=== PATIENT | female | born 1990 | race Caucasian/White ===

== ENCOUNTER 2021-09-11 13:34 | Outpatient (CLI) | payer OTHER, SELFPAY ==
[2021-09-11 20:28] LABS: Alanine Aminotransferase 33 U/L (4-35); Albumin Level 4.6 g/dL (3.5-5.1); Alkaline Phosphatase 79 U/L (38-126); Aspartate Amino Transferase 35 U/L (14-36); Bilirubin,Total 0.4 mg/dL (0.2-1.3)
== END 2021-09-11 13:35 | disposition home or self-care (01) ==
LOC: ANHBWCLAB 13:36
PROVIDERS: PCP Family Medicine; Visit Provider Family Medicine
DX: R74.8 Abnormal levels of other serum enzymes (principal)
CPT/HCPCS: 36415; 80076

== ENCOUNTER 2021-11-07 15:54 | Outpatient (CLI) | payer OTHER, SELFPAY ==
[2021-11-07 20:00] LABS: Hematocrit 38.1 % (37.0-47.0); Hemoglobin 12.5 g/dL (12.0-15.0); Mean Corpuscular HGB Conc 32.8 g/dl (32-36); Mean Corpuscular Hemoglobin 29.6 pg (26-34); Mean Corpuscular Volume 90.1 fl (80-100); Mean Platelet Volume 9.3 fl (7.4-10.4); Platelet Count Result 309 k/mm3 (150-375); Red Blood Count 4.23 M/mm3 (4.2-5.4); Red Cell Distribution Width 12.7 % (11.5-14.5); White Blood Count 5.1 K/mm3 (4.5-10.0)
[2021-11-07 20:05] LABS: Alanine Aminotransferase 18 U/L (4-35); Albumin Level 4.5 g/dL (3.5-5.1); Alkaline Phosphatase 60 U/L (38-126); Anion Gap 7 mmol/L (8-16); Aspartate Amino Transferase 29 U/L (14-36); Bilirubin,Total 0.2 mg/dL (0.2-1.3); Blood Urea Nitrogen 13 mg/dL (7-17); Calcium 9.4 mg/dL (8.4-10.2); Carbon Dioxide 28 mmol/L (22-30); Chloride 104 mmol/L (98-107); Cholesterol 200 mg/dL (0-200); Estimated Glomerular Filt Rate > 60; Glucose 95 mg/dL (65-110); HDL Direct 79 mg/dL; Potassium 4.2 mmol/L (3.4-5.0); Sodium 139 mmol/L (137-145); Triglycerides 102 mg/dL (<150)
[2021-11-07 20:16] LABS: LDL Cholesterol Direct 89 mg/dL
[2021-11-10 05:31] LABS: Progesterone 0.5 ng/mL (***)
[2021-11-10 14:43] LABS: Testosterone Total 38 ng/dL (2-45)
[2021-11-15 03:25] LABS: Estrogen 643.9 pg/mL
== END 2021-11-07 15:55 | disposition home or self-care (01) ==
LOC: ANHBWCLAB 15:56
PROVIDERS: PCP Family Medicine; Visit Provider Family Medicine
DX: Z00.00 Encounter for general adult medical examination without abnormal findings (principal); E78.00 Pure hypercholesterolemia, unspecified; R53.82 Chronic fatigue, unspecified; M79.7 Fibromyalgia; E07.9 Disorder of thyroid, unspecified; E66.9 Obesity, unspecified; E28.2 Polycystic ovarian syndrome; R79.89 Other specified abnormal findings of blood chemistry; R00.2 Palpitations; F41.9 Anxiety disorder, unspecified; R74.8 Abnormal levels of other serum enzymes
CPT/HCPCS: 36415; 80053; 80061; 82672; 84144; 84403; 84443; 85027

== ENCOUNTER 2021-11-30 08:57 | Outpatient (CLI) | payer OTHER, SELFPAY ==
--- NOTE | ~2021-11-30 | XR_ITS ---
EXAMINATION: XR abdomen obstructive series DATE: 11/30/2021 09:07 INDICATION: Left-sided abdominal pain TECHNIQUE: Upright and supine views of the abdomen were obtained. COMPARISON: None. FINDINGS: There is no free intraperitoneal gas or evidence of bowel obstruction. The bowel gas patter n is normal. There is a moderate volume of colonic stool. The visualized osseous structures are unrem arkable. IMPRESSION: 1. Nonobstructive bowel gas pattern Reviewed, dictated and finalized at location B.
== END 2021-11-30 08:58 | disposition home or self-care (01) ==
LOC: ANHBWCIMG 08:59
PROVIDERS: PCP Family Medicine; Visit Provider Family Medicine
DX: R10.9 Unspecified abdominal pain (principal)
CPT/HCPCS: 74019

== ENCOUNTER 2021-12-04 12:23 | Outpatient (CLI) | payer OTHER, SELFPAY ==
[2021-12-04 20:21] LABS: Basophils Percent Auto 0.9 % (0.2-1.2); Eosinophils Absolute Auto 0.2 K/mm3 (0-0.3); Eosinophils Percent Auto 4.2 % (0-4.4); Hematocrit 43.4 % (37.0-47.0); Hemoglobin 13.7 g/dL (12.0-15.0); Immature Granulocyte Absolute 0.01 K/mm3 (0.00-0.031); Immature Granulocyte Percent A 0.2 % (0-0.5); Lymphocytes Absolute Auto 1.74 K/mm3 (0.9-3.2); Lymphocytes Percent Auto 38.5 % (18.3-44.2); Mean Corpuscular HGB Conc 31.6 g/dl (32-36); Mean Corpuscular Hemoglobin 29.1 pg (26-34); Mean Corpuscular Volume 92.3 fl (80-100); Mean Platelet Volume 9.3 fl (7.4-10.4); Monocytes Absolute Auto 0.5 K/mm3 (0.1-0.6); Monocytes Percent Auto 11.1 % (2.6-8.5); Neutrophils Percent Auto 45.1 % (45.5-73.1); Platelet Count Result 364 k/mm3 (150-375); White Blood Count 4.5 K/mm3 (4.5-10.0)
[2021-12-04 21:04] LABS: Erythrocyte Sedimentation Rate 5 mm/hr (0-20)
[2021-12-04 21:28] LABS: CRP < 0.5 mg/dL (<1.0); Lipase 248 U/L (23-300)
== END 2021-12-04 12:24 | disposition home or self-care (01) ==
LOC: ANHBWCLAB 12:25
PROVIDERS: PCP Family Medicine; Visit Provider Family Medicine
DX: R10.9 Unspecified abdominal pain (principal); R74.8 Abnormal levels of other serum enzymes
CPT/HCPCS: 36415; 83690; 85025; 85652; 86140

== ENCOUNTER 2024-01-23 13:44 | Outpatient (RCR) | payer OTHER, SELFPAY ==
--- NOTE | 2024-01-23 14:48 | OPREHPOC ---
Outpatient Therapy Plan of Care This is a Multidisciplinary Plan of Care that may contain components documented by all disciplines (PT, OT, and ST.) PT Problem 1 PT Problem #1 Knowledge Deficit PT Goal 1 Goal *indep with HEP Target Visit 8 PT Problem 2 PT Problem #2 Impaired Vestibular Syste PT Goal 1 Goal pt perform without any symptoms reported: 1* lean trunk forward 2* walking 50' and turning head to R/L 3x each 3* driving 4* supine/sit/stand transfer 5* further assess vestibular system as indicated with progression of treatment Target Visit 8
--- NOTE | 2024-01-23 14:49 | PTOPEVAL1 ---
Assessment and note entered by Michelle Bustillos, PT Evaluation Information Assessment Status Evaluation Diagnosis dizziness Onset Oct 2023 Subjective Information history of chronic issues with migraines; in past 3 months started having dizziness with migraines; history of dizziness after her 2 pregnancies, daughter now 8 months old; sometimes have dizziness and not have a migraine: bend forward, moving head a lot with home tasks, walking and turning head, driving; have dizziness throughout the day, lasting few seconds to few minutes--not long; have recently had 3 sinus infections; use Flonase & Zyrtc PRN; have not started any new meds recently; meclazine does not effect dizziness so have not been taking it; hearing test was OK; have been to ENT and have had MRI- normal symptoms: lie in bed and room spinning- random occurance; turn head and get dizzy; Reported Pain Level Pain Score 0: Self Report Assessment PT Clinical Summary Rosa has the diagnosis of dizziness. She reports an increase in dizziness in the past 3 months, occur throughout the day, lasting few seconds to few minutes. Dizziness Handicap Index rating of 28% limitation. Her medical history includes: sinus infections 3x recently; nasal surgery x2 for nose bleeding; migraines; dizziness after her 2 pregnancies. With the evaluation: she had slight increase in symptoms with head motions R/L and positional changes; eye tracking and canal testing was negative. Education provided to pt--her risk factors, safety and possibly taking sinus meds regularly instead of PRN. Skilled PT services are indicated for further assessment of her vestibular system and education. Plan of Care Interventions Neuro Re-education,Patient/Caregiver Educati, Therapeutic Activities,Therapeutic Exercise PT Services Indicated Yes Treatment Frequency and 1-2x/wk for 8 visit total Duration
--- NOTE | 2024-02-18 11:48 | PTOPDC ---
Assessment and note entered by Michelle Bustillos, PT Discharge Report Assessment Status Discharge - Pt Not Present Diagnosis dizziness Onset Oct 2023 Subjective Information pt was not seen this date; Assessment PT Clinical Summary Rosa received the PT evaluation on January 22 and did not return for additional treatment. Discharge PT services. The goals were not addressed. Plan of Care PT Services Indicated No
== END 2024-02-18 13:33 | disposition home or self-care (01) ==
LOC: ANHPT 13:44
PROVIDERS: PCP Family Medicine; Visit Provider Family Medicine
DX: R42 Dizziness and giddiness (principal)
CPT/HCPCS: 97161; 97530

== ENCOUNTER 2024-04-16 09:02 | Outpatient (CLI) | payer OTHER, SELFPAY ==
[2024-05-04 18:12] VITALS: BMI 41.6
--- NOTE | 2024-05-04 18:12 | WPDHOMESLEEP ---
Sleep Study - Home Unattended Date of Study: 04/16/24 Ordering Provider: Mukul Hector MD Interpreting Provider: Akosua Skaggs DO Home Sleep Study Type: Watch PAT Height: 1.6 m Weight: 106.594 kg Body Mass Index: 41.6 Neck Circumference (inches): 15 [place]: 9 Reason for Sleep Study Snoring, daytime hypersomnia Sleep History The patient is a 34-year-old female that had a sleep study ordered by her primary care physician for evaluation of sleep apnea. The patient admits to snoring loudly, excessive daytime sleepiness and difficulty maintaining sleep. She denies stopping breathing during the night. She denies nocturnal choking / gasping. She denies having trouble breathing on her back. She admits to having morning headaches. She denies having a dry for sore mouth in the morning. She denies nocturnal heartburn. She denies nocturia. She admits to feeling tired or fatigued during the day. She admits to unrefreshing sleep. She does have the urge to fall asleep during the day and she is often drowsy while driving. She denies having trouble falling asleep. She admits to having difficulty returning to sleep. She wakes up too early without an alarm. She denies using hypnotics or sedatives. She denies being anxious about sleep. She does clench and grinds her teeth. She denies kicking and jerking her legs excessively during the night. She denies having a restless feeling in her legs or having the urge to move her legs. She goes to bed at 9:30 p.m. on weekdays and at 10:00 p.m. on the weekends. It takes her 1 hour to fall asleep. She typically gets 6 hours of sleep per night. She does not have restorative sleep on her days off. She does not take any planned naps. She denies smoking cigarettes. She consumes 1 glass of and alcoholic beverage 1-2 nights per week. She consumes 1-2 cups of caffeinated beverage per day. She denies exercising. [facility] Past Medical History Medical History Eczema Low vitamin D level Thyroid disease Family History Family History Father Borderline diabetes Grandparent Breast cancer Diabetes mellitus Social History Social History Smoking status: Never smoker Alcohol intake: current Drinks per week: 5 Substance use: never Lack of Transportation: No Lack of Food: Never True Current Housing: I Do Not Have Housing Concerned About Future Housing: No Difficulty Paying Gas/Electric Bills: No Difficulty Paying for Meds: No Currently Unemployed: No Education: Bachelor's Degree Difficulty w/ Childcare or Family Care: No Living arrangements: with family Medications Home Medications Medication Instructions Recorded Confirmed Type docosahexaenoic acid [ DHA] PO 03/04/20 02/12/22 History comp.stocking,knee,long,medium #12 ea 05/13/20 02/12/22 Rx cholecalciferol (vitamin D3) 50 50 mcg PO DAILY 09/07/21 02/12/22 History mcg (2,000 unit) capsule polyethylene glycol 3350 17 17 g PO DAILY #119 grams 12/01/21 02/12/22 Rx gram/dose oral powder (Miralax) methylphenidate HCl 5 mg tablet 5 mg PO DAILY 02/12/22 02/12/22 History sumatriptan succinate 25 mg tablet 25 mg PO ONCE 02/12/22 02/12/22 History vitamin B complex (B 1 tablet PO DAILY 02/12/22 02/12/22 History Complex-Vitamin B12 tablet) azithromycin 250 mg tablet See Rx Instructions PO .COMPLEX #6 01/23/24 01/23/24 Rx (Zithromax Z-Eliot) tabs prednisone 20 mg tablet 40 mg PO DAILY #10 tabs 01/23/24 01/23/24 Rx topiramate 25 mg tablet 25 mg PO DAILY #30 tabs 01/23/24 01/23/24 Rx ferrous sulfate 325 mg (65 mg 325 mg PO DAILY #90 tabs 02/17/24 Rx iron) tablet Sleep Procedure The sleep study was completed using WatchPAT a technically adequate device with seven channels: peripheral arterial tone, actigraphy, body position,
== END 2024-04-20 10:19 | disposition home or self-care (01) ==
PROVIDERS: PCP Family Medicine; Visit Provider Family Medicine
DX: G47.30 Sleep apnea, unspecified (principal); G47.10 Hypersomnia, unspecified; G47.9 Sleep disorder, unspecified
CPT/HCPCS: 95800

== ENCOUNTER 2024-08-17 07:49 | Outpatient (CLI) | payer OTHER, SELFPAY ==
--- NOTE | ~2024-08-17 | XR_ITS ---
XR abdomen/kub 1V Ordering provider: Mukul Hector MD History: . R10.30 - Lower abdominal pain, unspecified . Comparison: None. FINDINGS: BOWEL: Nonobstructive bowel gas pattern. ORGANOMEGALY: None. SIGNIFICANT PATHOLOGIC CALCIFICATIONS: None. OTHER: No free air is seen under the diaphragm. IMPRESSION: NO ACUTE ABDOMINAL FINDINGS. Reviewed, dictated and finalized at location A. ESSIVE THERAPIST
== END 2024-08-17 07:50 | disposition home or self-care (01) ==
PROVIDERS: PCP Family Medicine; Visit Provider Family Medicine
DX: R10.30 Lower abdominal pain, unspecified (principal)
CPT/HCPCS: 74018

== ENCOUNTER 2024-10-31 19:26 | Emergency (ER) | payer OTHER, SELFPAY ==
--- NOTE | ~2024-10-31 | XR_ITS ---
EXAMINATION: XR chest 1V portable DATE: 10/31/2024 22:56 INDICATION: Near syncope. TECHNIQUE: A single frontal view of the chest was obtained. COMPARISON: None. FINDINGS: There is no pneumonia, pleural effusion, or pneumothorax. The heart size is normal. IMPRESSION: 1. No acute cardiopulmonary disease. Reviewed, dictated and finalized at location A. MOTIVE DETAILER
--- OUTSIDE RECORDS SUMMARY | 2024-10-31 19:28 | XMS_ITS | Clinical Summary ---
Author Organization [facility] Address [address] [place] [address] Care Team Providers Care Access Service Representative Name Role Phone Mukul Hector MD Primary Care Provider [phone] Charly Mccloud MD Unavailable [phone] Allergies No known active allergies Medications ferrous sulfate 325 mg (65 mg of elemental iron) tabletIndicatio ns:Iron Deficiency Anemia Take 1 tablet (325 mg total) by mouth every other day Active LORazepam (ATIVAN) 1 mg tablet TAKE 1 TABLET(1 MG) BY MOUTH EVERY 6 HOURS NEEDED FOR ANXIETY 30 tablet 5 06/10/20 24 Active levonorgestreL (LILETTA) 20.4 mcg/24 hr (8 yrs) 52 mg IUD 1 each by intrauterine route once 07/02/20 23 Active lebrikizumab-lb kz (Ebglyss Pen) 250 mg/2 mL pen injector subcutaneous pen injector 09/07/20 24 Active SEMAGLUTIDE, WEIGHT LOSS, SUBQ Inject 40 Units under the skin Active MAGNESIUM GLUCONATE ORAL Take 120 mg by mouth Active ascorbic acid (ascorbic acid with daniel hips) 500 mg tablet,chewable 1 tablet/chew tab (500 mg total) Active cyanocobalamin, vitamin B-12, (VITAMIN B-12 ORAL) Take 1,000 mg by mouth Active RIBOFLAVIN, VITAMIN B2, ORAL Take 400 mg by mouth Active erenumab-aooe 140 mg/mL auto-injector Inject 1 mL (140 mg total) under the skin every 30 (thirty) days 1 mL 3 10/16/19 25 Active fluconazole (Diflucan) 150 mg tablet Take 1 tablet by mouth now and 1 tablet by mouth in 48 hours 2 tablet 08/19/20 24 2024 Discontinued ubrogepant (Ubrelvy) 50 mg tablet Take 1 tablet (50 mg total) by mouth once as needed for migraine May repeat dose once in 2 hours if no relief. Do not exceed 2 doses in 24 hours. 2024 Discontinued Active Problems Problem Noted Date Diagnosed Date Persistent postural-perceptual dizziness 024 Vestibular migraine 05/06/2024 37 weeks gestation of 05/12/2023 Threatened labor, third trimester 2022 30 weeks gestation of 03/23/2023 Epistaxis 02/12/2023 Supervision of high risk , antepartum 0 10/22/2022 Rh negative, antepartum 10/22/2022 Homozygous MTHFR mutation [id number] 02/19/2022 Resolved Problems Problem Noted Date Diagnosed Date Resolved Date Acute posterior epistaxis 05/05/2023 Diarrhea due to drug 03/23/2023 025 Homozygous for C677T polymorphism of MTHFR 10/22/2022 10/16/2024 FDIU ( in utero) 08/21/2021 10/22/2022 Vitamin D deficiency 07/06/2020 025 Assessment & Plan (07/06/2020 8:27 AM CDT): Treated by her OB Vitamin D was 50 on 06/24/20 - continue treatment per her OB. Acquired hypothyroidism 05/23/2020 02/0 03/2025 Assessment & Plan (07/06/2020 8:26 AM CDT): Patient started on Levothyroxine in February 2020 Labs reviewed on patient's phone TSH was 3.7 in February TSH was 2.2 on 03/26 The dose of Levothyroxine was increased to 50 mcg in April/2020 Thyroid ultrasound on 05/13/20 Normal size thyroid with Small thyroid nodules 4 mm I took her off levothyroxine in May/2020 Patient is clinically euthyroid Patient still has occasional symptoms related to anxiety TSH 5.08 on 06/24/20 Plan: The abnormal thyroid levels discussed with patient We will treat subclinical hypothyroidism as patient trying to get . Start patient on levothyroxine 25 mcg /day Check TSH in 6 weeks I will adjust the dose if needed. Assessment & Plan (05/23/2020 4:48 PM CDT): Patient started on Levothyroxine in February 2020 Labs reviewed on patient's phone TSH was 3.7 in February TSH was 2.2 on 03/26 The dose of Levothyroxine was increased to 50 mcg in April/2020 Thyroid ultrasound on 05/13/20 Normal size thyroid with Small thyroid nodules 4 mm Patient is clinically euthyroid She has multiple symptoms which seems to have started after she was started on Levothyroxine Plan: I will obtain original labs from her OB I recommend that we stop Levothyroxine for now We will monitor symptoms and repeat TFT next visit. Polycystic ovarian syndrome 05/23/2020 10/16/2024 Assessment & Plan (05/23/2020 4:52 PM CDT): Oligomenorrhea after being off BCP since September/2019 No clinical evidence of PCOS, Ovarian ultrasound showed peripheral ovarian follicles. Plan: The irregular periods could be still related to rat exterminator treatment with BCP. Normalization could still happen in next few month Work up for PCOS can be done in the future in needed Patient to continue to work with her OB regarding menstruation and fertility. Encounters Date Type Department Care Team Description 10/22/[address] [facility] General Neurology [address] [place] [address] Oral Mancia MD [employer] 10/22/[address] [facility] General Neurology [address] [facility] 6th Floor [address] [place] [id number] Edvin Warner RN 10/16/2024 11:00 AM SIDE STITCHING MACHINE OPERATOR Office Visit [facility] General Neurology [address] [facility] 6th Floor [address] [place] [phone] Oral Mancia MD Acquired hypothyroidism (Primary Dx); Vestibular migraine; Polycystic ovarian syndrome; Vitamin D deficiency 09/25/2024 9:45 AM SIDE STITCHING MACHINE OPERATOR Office Visit [facility] [address] [place] [address] Lucero Tomas NP Vaginal infection (Primary Dx); Vaginal odor; Vaginal discharge 09/04/[address] [facility] Scheduling [address] [place] [address] Lucía IsaacKasie 08/03/2024 Telephone [facility] [address] [facility] [address], [place] [address] Charly Mccloud MD Test Results 07/31/2024 1:45 PM SIDE STITCHING MACHINE OPERATOR Office Visit [facility] [address] [facility] [address], [place] [address] Charly Mccloud MD Vaginal infection (Primary Dx) from Last 3 Months Immunizations Immunization Administration Dates Next Due Tdap 08/22/2021(Deferred: Other - discussed with Dr. Mccloud and he said not to give it.) Surgical History Surgery Date Site/Laterality Comments NO PAST SURGERIES TONSILLECTOMY 10/10/2009 - 11/06/2009 WISDOM TOOTH EXTRACTION 09/09/2007 - 09/08/2008 CAUTERIZE INNER NOSE 02/19/2023 Medical History Medical History Date Comments Mental disorder anxiety History of infertility H/O MTHFR mutation Frequent headaches History of epistaxis H/O eczema History of stillbirth 25 weeks 3 days FDIU Hypothyroidism Vitamin D deficiency History of PCOS Family History Medical History Relation Name Comments Diabetes Father Breast cancer Father's Sister Diabetes Maternal Grandmother Breast cancer Paternal Grandmother Relation Name Status Comments Father Father's Sister Other Maternal Grandmother Paternal Grandmother Social History Tobacco Use Types Packs/Day Years Used Date Smoking Tobacco: Never Smokeless Tobacco: Never Tobacco Cessation:Counseling Given: Not Answered Alcohol Use Standard Drinks/Week Comments Yes 0 (1 standard drink = 0.6 oz pur e alcohol) AUDIT-C Answer Date Recorded Q1: How often do you have a drink containing alcohol? Never 03/23/2023 Q2: How many drinks containi ng alcohol do you have on a typical day when you are drinking? Patient does not drink Q3: How often do you have si x or more drinks on one occasion? Never 03/23/2023 PHQ-2 Answer Date Recorded PHQ-2 Total Score (If total score is 3 or more points, staff should administer the PHQ-9) 0 02/12/2023 [place] Depression Scale Answer Date Recorded [place] Depression Scale Total 4 05/13/2023 The thought of harming myself has occurred to me . Never 05/13/2023 Personal Safety Answer Date Recorded Have you ever been in or are you currently in a harmful physical or emotional relationship or is someone making you feel afraid or unsafe? Denies 05/12/2023 Comments No Sex and Gender Information Value Date Recorded Sex Assigned at Not on file Legal Sex Female 4:48 PM CDT Gender Identity Female 05/23/2020 2:54 PM CDT Sexual Orientation Straight 05/23/2020 2: 54 PM CDT Obstetrics History Para Term AB IAB SAB Ectopic Multiple Livin g Live Births 2 2 1 1 0 1 1 Date Outcome GA Total Labor Labor/2nd/3rd Weight Sex Type Anes PTL Alma A1 A5 Name Clin 2020 25w 3d 0h 27m 0h 17m/0h 10m 0.615 kg (1 lb 5.7 oz) F Vag-Sp ont Epidur al N Demis e 0 0 NORRI S,GIR LMOLL Y FD Rocio downs, Lyubov Moses CNM Delivery Location:[facility] ([facility]) 2022 Term 37w 2d 0h 49m 0h 42m/0h 07m 3.18 kg (7 lb 0.2 oz) F Vagina l Epidur al N Livin g 8 9 NORRI S,GIR LMOLL Y Matthew Agustin MD Delivery Location:[facility] ([facility]) Last Filed Vital Signs Vital Sign Reading Time Taken Comments Blood Pressure 117/82 10/16/2024 10:40 AM SIDE STITCHING MACHINE OPERATOR Pulse 84 10/16/2024 10:40 AM SIDE STITCHING MACHINE OPERATOR Temperature 36.8 C (98.3 F) 10/16/2024 10:40 AM SIDE STITCHING MACHINE OPERATOR Respiratory Rate 20 05/14/2023 9:10 AM CDT Oxygen Saturation 99% 10/16/2024 10:40 AM SIDE STITCHING MACHINE OPERATOR Inhaled Oxygen Concentration - - Weight 94.6 kg (208 lb 8 oz) 10/16/2024 10:40 AM SIDE STITCHING MACHINE OPERATOR Height 160 cm (5' 3 ) 10/16/2024 10:40 AM SIDE STITCHING MACHINE OPERATOR Body Mass Index 36.93 10/16/2024 10:40 AM SIDE STITCHING MACHINE OPERATOR Plan of Treatment Health Maintenance Due Date Last Done Comments Cervical Cancer Screening 1991 DTaP/Tdap/Td Vaccine (1 - Tdap) 2002 Varicella Vaccines (1 of 2 - 13+ 2-dose series) 01/07/2004 Hepatitis B Screening 2009 Regular Well Visit/Exam 18-64 2009 Influenza Vaccine (#1) 2024 06/29/2019 Depression Screening 05/13/2024 05/13/2023, 02/12/2023, 10/22/2022, Additional history exists Hepatitis C Screening Completed 08/22/2021 HPV Vaccines Aged Out No longer eligi ble based on patient's age to complete this topic Pneumococcal vaccine <65 Aged Out No longer eligible based on patient's age to complete this topic Goals Goal Patient Goal Type Associated Problems Recent Progress Patient-Stated? Author CCM Chronic Pain Care Plan Chronic Care Management Worsening( 8:27 AM SIDE STITCHING MACHINE OPERATOR) No Gaby Mcgee RN Note: Problem: Chronic Pain Goals: 1. Minimize further functional decline 2. Maximize quality of life 3. Control pain Strategies: - Activity/exercise program recommendation - Conservative stepwise pain medicine strategy with multi-disciplinary approach - Recommend healthy lifestyle strategies and compensatory methods as needed Procedures Procedure Name Priority Date/Time Associated Diagnosis Comments NUSWAB VG, EUGENIA 6SP Routine 09/25/2024 10:43 AM SIDE STITCHING MACHINE OPERATOR NUSWAB VG, EUGENIA 6SP Routine 07/31/2024 2:40 AM SIDE STITCHING MACHINE OPERATOR HEPATITIS PANEL, ACUTE Routine 08/22/2021 3:08 AM SIDE STITCHING MACHINE OPERATOR from Last 3 Months or Most Recently Relevant to Health Maintenance Results * NuSwab VG, Eugenia 6sp (09/25/2024 10:43 AM SIDE STITCHING MACHINE OPERATOR) Atopobium vaginae Low - 0 Score [facility] - 01 BVAB 2 Low - 0 Score [facility] - 01 Megasphaera 1 Low - 0 Score [facility] - 01 Comment: Calculate total score by adding the 3 individual bacterial vaginosis (BV) marker scores together. Total score is interpreted as follows: Total score 0-1: Indicates the absence of BV. Total score 2: Indeterminate for BV. Additional clinical data should be evaluated to establish a diagnosis. Total score 3-6: Indicates the presence of BV. C. albicans DNA Negative Negative [facility] - 01 Eugenia glabrata, TODD Negative Negative [facility] - 01 C parapsilosis/trop icalis Negative Negative [facility] - 01 Comment:This assay does not differentiate C. tropicalis and C. parapsilosis. Eugenia lusitaniae, TODD Negative Negative [facility] - 01 Eugenia krusei, TODD Negative Negative [facility] - 01 Trichomonas vaginalis Negative Negative [facility] - 01 09/25/2024 10:4 3 AM SIDE STITCHING MACHINE OPERATOR 09/25/2024 Comment:VA Narrative [facility] - 09/28/2024 6:07 AM SIDE STITCHING MACHINE OPERATOR Test(s) 640709- Atopobium vaginae; 898918- BVAB 2; 846455- Megasphaera 1 was developed and its performance characteristics determined by [facility]. It has not been cleared or approved by the Food and Drug Administration. Test(s) 065745-Xpkesik albicans, TODD; 320959-Cvozeww glabrata, TODD; 565219-D parapsilosis/tropicalis; 714265-Ortrjax lusitaniae, TODD; 129524-Nyqehda krusei, TODD was developed and its performance characteristics determined by [facility]. It has not been cleared or approved by the Food and Drug Administration. Performed at: - [facility] [id number] [employer]: Mi Hansen MD, Phone: [phone] us Lucero Tomas NP LAB BLOOD ORDERABLES F inal Result [facility] - * (ABNORMAL) NuSwab VG, Eugenia 6sp (07/31/2024 2:40 AM SIDE STITCHING MACHINE OPERATOR) Atopobium vaginae Low - 0 Score [facility] - 01 BVAB 2 Low - 0 Score [facility] - 01 Megasphaera 1 Low - 0 Score [facility] - 01 Comment: Calculate total score by adding the 3 individual bacterial vaginosis (BV) marker scores together. Total score is interpreted as follows: Total score 0-1: Indicates the absence of BV. Total score 2: Indeterminate for BV. Additional clinical data should be evaluated to establish a diagnosis. Total score 3-6: Indicates the presence of BV. C. albicans DNA Positive(A) Negative [facility] - 0 1 Eugenia glabrata, TODD Negative Negative [facility] - 01 C parapsilosis/trop icalis Negative Negative [facility] - 01 Comment:This assay does not differentiate C. tropicalis and C. parapsilosis. Eugenia lusitaniae, TODD Negative Negative [facility] - 01 Eugenia krusei, TODD Negative Negative [facility] - 01 Trichomonas vaginalis Negative Negative [facility] - 01 07/31/2024 2:40 AM SIDE STITCHING MACHINE OPERATOR 07/31/2024 Comment:PAYAL Montoya [facility] - 08/03/2024 11:10 AM SIDE STITCHING MACHINE OPERATOR Test(s) 089556- Atopobium vaginae; 469101- BVAB 2; 582394- Megasphaera 1 was developed and its performance characteristics determined by [facility]. It has not been cleared or approved by the Food and Drug Administration. Test(s) 676967-Qlzfyit albicans, TODD; 328534-Fbyrcdp glabrata, TODD; 405337-L parapsilosis/tropicalis; 081440-Kcxzwdk lusitaniae, TODD; 050306-Bnueubs krusei, TODD was developed and its performance characteristics determined by [facility]. It has not been cleared or approved by the Food and Drug Administration. Performed at: 01 - [facility] [id number] [employer]: Mi Hansen MD, Phone: [phone] Charly Mccloud MD LAB BLOOD ORDERABLES Samantha martinez Result [facility] - 01 * Hepatitis panel, acute (08/22/2021 3:08 AM SIDE STITCHING MACHINE OPERATOR) Hep A IgM Nonreactive Nonreactive [facility] Comment: Interpretive Data: If Hep A IgM Ab is reported as Equivocal, a new sample should be drawn in two weeks for testing. Current interpretive data was last revised on 19. Hep B core IgM Nonreactive Nonreactive [facility] Comment: Interpretive Data If HepB Core IgM Ab is reported as Equivocal, a new sample should be drawn in two weeks for testing. Current interpretive data was last revised on 19. Hep C Ab Nonreactive Nonreactive [facility] Comment: Interpretive Data Nonreactive: Antibodies to HCV not detected. Does NOT exclude the possibility of recent exposure to HCV. Equivocal: Equivocal for HCV antibodies. Supplemental molecular testing will be automatically performed to determine infection status in accordance with current CDC screening recommendations. Reactive: Positive for HCV antibodies. This may represent current or past HCV infection. Supplemental molecular testing will be automatically performed to determine current infection status in accordance with current CDC screening recommendations. Interpretive data was last revised on 2019. HepBsAg Nonreactive Nonreactive [facility] HepBsAg Nonreactive Nonreactive [facility] Blood 08/22/2021 3:08 AM SIDE STITCHING MACHINE OPERATOR 08/22/2021 3:50 AM SIDE STITCHING MACHINE OPERATOR Charly Mccloud MD LAB MICROBIOLOGY - GENERA L ORDERABLES Final Result [facility] [address] [place] [address] from Last 3 Months or Most Recently Relevant to Health Maintenance Insurance [facility]PPO Address: [address] [address] [place] [address] [facility] H[facility]/PPO Address: [address] [address] [place] [address] [facility] [place] [facility] [place] [facility] Address: [facility] [id number] [place] [address] [employer] OPEN ACCESS Advance Directives For more information, please contact: [phone] * Full Code (Latest Code Status on File) Date Activated Date Inactivated Comments 05/12/2023 4:02 PM 05/14/2023 7:11 PM Full CPR in ca se of cardiopulmonary arrest * Full Code Date Activated Date Inactivated Comments 05/05/2023 11:46 AM 05/07/2023 6:20 PM * Full Code Date Activated Date Inactivated Comments 02/12/2023 12:58 PM 02/13/2023 2:33 PM * Full Code Date Activated Date Inactivated Comments 08/21/2021 2:59 PM 08/22/2021 7:04 PM Full CPR i n case of cardiopulmonary arrest Care Teams Access Service Representative Relationship Specialty Start Date End Date Mukul Hector MD PCP - General 07/11/21 Charly Mccloud MD [address] [facility] [address] [place] [address] Consulting Physician Obstetrics and Gynecology 08/22/21
--- OUTSIDE RECORDS SUMMARY | 2024-10-31 19:28 | XMS_ITS | Clinical Summary ---
Author Organization [facility] Address [address] [place] [address] Phone Care Team Providers Care Heliarc Welder Name Role Phone Mukul Hector MD Primary Care Provider [phone] Basim Lehman MD Unavailable [phone] Annetta Chinchilla CENTRIFUGAL CASTING MACHINE OPERATOR, ONCOLOGY SPECIALIST Unavailable + [phone] Allergies No known active allergies Medications Dupilumab (Dupixent) 300 MG/2ML Solution Pen-injector 2 mL by Subcutaneous route every 14 days. Active magnesium hydroxide 311 MG Chewable Tablet Take 300 g by mouth. Active ondansetron (ZOFRAN-ODT) 4 MG TABLET DISPERSIBLEIndi cations:Vestibu lar migraine Take 1 Tablet by mouth every 8 hours as needed for Nausea - 1st line. 20 Tablet 2 4 Active propranolol (INDERAL) 10 MG Tablet TAKE 1 TABLET BY MOUTH THREE TIMES DAILY 270 Tablet 1 4 Active FeroSul 325 (65 Fe) MG Tablet Take 325 mg by mouth daily. 2 daily Active RIBOFLAVIN PO Take by mouth. A ctive LORazepam (Ativan) 1 MG TabletIndicatio ns:dizziness Take 1 mg by mouth daily. Indications: dizziness Active Ubrogepant (Ubrelvy) 50 MG TabletIndicatio ns:Vestibular migraine Take 1 Tablet by mouth once as needed for Other (headache/migrai ne). 16 Tablet 5 4 Active Active Problems No known active problems Family History Medical History Relation Name Comments Diabetes Father Relation Name Status Comments Father Social History Tobacco Use Types Packs/Day Years Used Date Smoking Tobacco: Never Smokeless Tobacco: Never Tobacco Cessation:Counseling Given: Not Answered Alcohol Use Standard Drinks/Week Comments Yes 0 (1 standard drink = 0.6 oz pur e alcohol) 5 weekly Comments No Sex and Gender Information Value Date Recorded Sex Assigned at Not on file Legal Sex Female 11:49 AM CDT Gender Identity Not on file Sexual Orientation Not on file Last Filed Vital Signs Vital Sign Reading Time Taken Comments Blood Pressure 134/80 07/03/2024 2:51 PM CDT Pulse 90 07/03/2024 2:51 PM CDT Temperature 36.3 C (97.4 F) 07/03/2024 2:51 PM CDT Respiratory Rate 17 07/03/2024 2:51 PM CDT Oxygen Saturation 98% 07/03/2024 2:51 PM CDT Inhaled Oxygen Concentration - - Weight 101.9 kg (224 lb 9.6 oz) 07/03/2024 2:51 PM CDT Height 157.5 cm (5' 2 ) 07/03/2024 2:51 PM CDT Body Mass Index 41.08 07/03/2024 2:51 PM CDT Plan of Treatment Health Maintenance Due Date Last Done Comments TdaP Immunization 1991 Hepatitis B Immunization (1 of 3 - 19+ 3-dose series) 2010 Pap Smear 01/07/2012 Cervical Cancer Screening (CCS) 2021 HPV/Cotest 2021 Influenza Immunization (#1) 05/10/202406/10, 06/29/2019 SARS-COV-2 Immunization ( season) 2024 Respiratory Syncytial Virus (RSV) Immunization (Adult) (1 - 1-dose 75+ series) 2066 Hepatitis C Virus (HCV) Screening Completed 08/22/2021 Meningococcal Immunization (ACWY) Aged Out No longer eligible b ased on patient's age to complete this topic Pneumococcal Immunization Combined Aged Out No longer eligible b ased on patient's age to complete this topic Rotavirus Immunization Aged Out No lo nger eligible based on patient's age to complete this topic Insurance [facility] Care Teams Heliarc Welder Relationship Specialty Start Date End Date Mukul Hector MD [address] [place] [id number] PCP - General Family Medicine 12/06/21 Basim Lehman MD [address] [place] [address] Consulting Physician Neurology 12/06/21 Annetta Chinchilla, CENTRIFUGAL CASTING MACHINE OPERATOR, ONCOLOGY SPECIALIST [address] [place] [address] Nurse Practitioner Advanced Practice Nurse 05/31/22
--- OUTSIDE RECORDS SUMMARY | 2024-10-31 19:28 | XMS_ITS | Patient Health Summary ---
Author Organization [facility] Address [address] [place] [address] Care Team Providers Care Tank Shop Supervisor Name Role Phone Unavailable Primary Care Provider Unavailabl e Note from [facility],non-owned Affiliates and Associated Physician Practices is amultiple site organization consisting of ambulatory clinics and hospital sitesin [place], [place], [place] and [place]. This disclosure is being madepursuant to the Care Everywhere program and may not contain all information available regarding this patient. Last updated 18.[facility] [employer] Social History Tobacco Use Types Packs/Day Years Used Date Smoking Tobacco: Never Assessed Sex and Gender Information Value Date Recorded Sex Assigned at Not on file Gender Identity Not on file Sexual Orientation Not on file Procedures * DERMATOPATHOLOGY(Performed 03/09/2024) Results * DERMATOPATHOLOGY (03/09/2024 7:44 AM CDT) Case Report Dermatopathology Report Case: [id number] Authorizing Provider: Sandra Ramsey MD Collected: 03/09/2024 07:44 AM Ordering Location: [facility] - Received: 03/09/2024 01:04 PM DermPath Lab Pathologist: Ronda Ferrara MD Specimen: Skin, left eyelid 4 2:25 PM CDT DERMATOPATHOLOGY LABORATORY Final Diagnosis Specimen A. SKIN, left eyelid: INTRADERMAL MELANOCYTIC NEVUS (D22.122) 4 2:25 PM CDT DERMATOPATHOLOGY LABORATORY Clinical History Nevus r/o atopia brown papule 4 2:25 PM CDT DERMATOPATHOLOGY LABORATORY Gross Description Specimen A: Received is one formalin filled container labeled with the patient's name and designated left eyelid. The specimen consists of a shave biopsy measuring 4x3x1 mm. Jar 0. 07/03/202 4 2:25 PM CDT DERMATOPATHOLOGY LABORATORY Microscopic Description Specimen A. SKIN, left eyelid: There are nests of cytologically bland melanocytes within the dermis that mature with depth. 4 2:25 PM CDT DERMATOPATHOLOGY LABORATORY Disclaimer An external and internal positive and negative controls are appropriate for the histochemical, immunohistochemical and immunofluorescence stain(s) in this case (if any), except where stated explicitly. The performance characteristics of the stain(s) cited in this report were developed and its performance characteristic determined by the Dermatopathology Laboratory at [facility], directed by Dr. Kvng Gleason. These tests need not be, and therefore are not, approved by the [place] Food and Drug Administration. The tests are used for clinical purposes. Billing Codes Specimen Charges Stain Charges 03074 1 4 2:25 PM CDT DERMATOPATHOLOGY LABORATORY Embedded Images 4 2:25 PM CDT DERMATOPATHOLOGY LABORATORY Pathology/Cytolo gy TISSUE SPECIMEN FROM SKIN / Unknown 03/09/2024 7:44 AM CDT 03/09/2024 1:04 PM CDT Sandra Ramsey MD LAB - PATHOLOGY/CYTO LOGY ORDERABLES DERMATOPATHOLOGY LABORATORY [facility] - Department of Dermatology [facility] Medicine [address] [place] [address], [address] [phone]
--- OUTSIDE RECORDS SUMMARY | 2024-10-31 19:28 | XMS_ITS | Referral Summary ---
Author Organization [facility] Address [address] [place] [address] Care Team Providers Care Demand Equipment Repairer Name Role Phone Unavailable Primary Care Provider Unavailabl e Source Comments [facility],non-owned Affiliates and Associated Physician Practices is amultiple site organization consisting of ambulatory clinics and hospital sitesin [place], [place], [place] and [place]. This disclosure is being madepursuant to the Care Everywhere program and may not contain all information available regarding this patient. Last updated 18.[facility] [employer] Social History Tobacco Use Types Packs/Day Years Used Date Smoking Tobacco: Never Assessed Sex and Gender Information Value Date Recorded Sex Assigned at Not on file Gender Identity Not on file Sexual Orientation Not on file Plan of Treatment Not on file
--- OUTSIDE RECORDS SUMMARY | 2024-10-31 19:28 | XMS_ITS | Clinical Summary ---
Author Organization [facility] Address [address] [place] [address] Care Team Providers Care Stitching Machine Feeder Or Offbearer Name Role Phone Unavailable Primary Care Provider Unavailabl e Source Comments [facility],non-owned Affiliates and Associated Physician Practices is amultiple site organization consisting of ambulatory clinics and hospital sitesin [place], [place], [place] and [place]. This disclosure is being madepursuant to the Care Everywhere program and may not contain all information available regarding this patient. Last updated 18.[facility] Social History Tobacco Use Types Packs/Day Years Used Date Smoking Tobacco: Never Assessed Sex and Gender Information Value Date Recorded Sex Assigned at Not on file Gender Identity Not on file Sexual Orientation Not on file Plan of Treatment Health Maintenance Due Date Last Done Comments PAP SMEAR 1991 HIV SCREENING 2006 HEPATITIS C SCREENING 01/01/2009 DTAP/TDAP/TD VACCINES (1 - Tdap) 2010 HEPATITIS B VACCINE (1 of 3 - 19+ 3-dose series) 2010 COVID-19 VACCINE ( - 2023-2 5 season) 2024 INFLUENZA VACCINE (#1) 2024 DEPRESSION SCREENING 09/09/2024 MEDICARE AWV CALENDAR YEAR 2024 ZOSTER VACCINE (1 of 2) 2041 HIB VACCINE Aged Out No longer eligi ble based on patient's age to complete this topic HPV VACCINE Aged Out No longer eligi ble based on patient's age to complete this topic MENINGOCOCCAL (Group B) VACCINE Aged Out No longer eligible based on patient's age to complete this topic MENINGOCOCCAL VACCINE Aged Out No haley richard eligible based on patient's age to complete this topic PNEUMOCOCCAL VACCINE Aged Out No long er eligible based on patient's age to complete this topic
--- OUTSIDE RECORDS SUMMARY | 2024-10-31 19:28 | XMS_ITS | Encounter Summary ---
Author Organization [facility] Address [address] [place] [address] Care Team Providers Care Electric Tool Repairer Name Role Phone Unavailable Primary Care Provider Unavailabl e Encounter Details Date Type Department Care Team (Late st Contact Info) Description 03/09/2024 Lab Requisition [facility] - DermPath Lab [address] [facility], [place] [address] Sandra Ramsey MD [address] [facility] [address] [place] [address] Social History Tobacco Use Types Packs/Day Years Used Date Smoking Tobacco: Never Assessed Sex and Gender Information Value Date Recorded Sex Assigned at Not on file Gender Identity Not on file Sexual Orientation Not on file documented as of this encounter Plan of Treatment Not on file documented as of this encounter Procedures Procedure Name Priority Date/Time Associated Diagnosis Comments DERMATOPATHOLOGY Routine 03/09/2024 7:44 AM CDT documented in this encounter Results * DERMATOPATHOLOGY (03/09/2024 7:44 AM CDT) Case Report Dermatopathology Report Case: [id number] Authorizing Provider: Sandra Ramsey MD Collected: 03/09/2024 07:44 AM Ordering Location: [facility] Physician [facility] - Received: 03/09/2024 01:04 PM DermPath Lab Pathologist: Ronda Ferrara MD Specimen: Skin, left eyelid 2:25 PM CDT DERMATOPATHOLOGY LABORATORY Final Diagnosis [...] shave biopsy measuring 4x3x1 mm. Jar 0. 2:25 PM T DERMATOPATHOLOGY LABORATORY Microscopic Description Specimen A. SKIN, left eyelid: There are nests of cytologically bland melanocytes within the dermis that mature with depth. 4 2:25 PM T DERMATOPATHOLOGY LABORATORY Disclaimer An external and internal positive and negative controls are appropriate for the histochemical, immunohistochemical and immunofluorescence stain(s) in this case (if any), except where stated explicitly. The performance characteristics of the stain(s) cited in this report were developed and its performance characteristic determined by the Dermatopathology Laboratory at [facility], directed by Dr. Kvng Gleason. These tests need not be, and therefore are not, approved by the [place] Food and Drug Administration. The tests are used for clinical purposes. Billing Codes Specimen Charges Stain Charges 22577 1 4 2:25 PM CDT DERMATOPATHOLOGY LABORATORY Embedded Images 2:25 PM CDT DERMATOPATHOLOGY LABORATORY Pathology/Cytolo gy TISSUE SPECIMEN FROM SKIN / Unknown 03/09/2024 7:44 AM CDT 03/09/2024 1:04 PM CDT Sandra Ramsey MD LAB - PATHOLOGY/CYTO LOGY ORDERABLES DERMATOPATHOLOGY LABORATORY [facility] - Department of Dermatology [address], [address] [phone] documented in this encounter Visit Diagnoses Not on filedocumented in this encounter
--- OUTSIDE RECORDS SUMMARY | 2024-10-31 19:29 | XMS_ITS | Encounter Summary ---
Author Organization [facility] Address [address] [place] [address] Phone Care Team Providers Care Pc Support Specialist Name Role Phone Mukul Hector MD Primary Care Provider [phone] Charly Mccloud MD Unavailable [phone] Encounter Details Date Type Department Care Team (Late st Contact Info) Description 10/22/2024 Telephone [facility] General Neurology [address] [facility] 6th Floor [address] [place] [address] Edvin Warner RN Social History Tobacco Use Types Packs/Day Years Used Date Smoking Tobacco: Never Smokeless Tobacco: Never Alcohol Use Standard Drinks/Week Comments Yes 0 [...] staff should administer the PHQ-9) 0 02/12/2023 [place] Depression Scale Answer Date Recorded [place] Depression Scale Total 4 05/13/2023 The thought [...] Orientation Straight 05/23/2020 2: 54 PM CDT documented as of this encounter Miscellaneous Notes * Telephone Encounter - Edvin Warner RN - 10/22/2024 11:08 AM BEVERAGE SERVER Patient called to let us know [employer] is requiring prior authorization. Unfortunately we have not received anything from the pharmacy. I contacted the pharmacy and they were on lunch break. Left a message with the pharmacy requesting they fax us the information needed for prior authorization. Will leave on task list. RAGE SERVER documented in this encounter Plan of Treatment Not on file documented as of this encounter Goals Goal Patient Goal Type Associated Problems Recent Progress Patient-Stated? Author CCM Chronic Pain Care Plan Chronic Care Management Worsening( 8:27 AM BEVERAGE SERVER) No Gaby Mcgee RN Note: Problem: Chronic Pain Goals: 1. Minimize further functional decline 2. Maximize quality of life 3. Control pain Strategies: - Activity/exercise program recommendation - Conservative stepwise pain medicine strategy with multi-disciplinary approach - Recommend healthy lifestyle strategies and compensatory methods as needed documented as of this encounter Visit Diagnoses Not on filedocumented in this encounter Care Teams Pc Support Specialist Relationship Specialty Start Date End Date Mukul Hector MD PCP - General 07/11/21 Charly Mccloud MD [address] [facility] [address] [place] [address] Consulting Physician Obstetrics and Gynecology 08/22/21 documented as of this encounter
--- OUTSIDE RECORDS SUMMARY | 2024-10-31 19:29 | XMS_ITS | Referral Summary ---
Author Organization [facility] Address [address] [place] [address] Care Team Providers Care Boat Detailer Name Role Phone Mukul Hector MD Primary Care Provider [phone] Charly Mccloud MD Unavailable [phone] Encounters Date Type Department Care Team Description 10/22/[address] [facility] General Neurology [address] [place] [address] [facility] 10/22/[address] [facility] General Neurology [address] [facility] 6th [address] [place] [address] Edvin Warner RN 10/16/2024 11:00 AM STOPPER MAKER Office Visit [facility] General Neurology [address] [facility] 6th [address] [place] [address] Oral Mancia MD Acquired hypothyroidism (Primary Dx); Vestibular migraine; Polycystic ovarian syndrome; Vitamin D deficiency 09/25/2024 9:45 AM STOPPER MAKER Office Visit [facility] [address] [place] [address] [address] [place] [phone] Lucero Tomas NP Vaginal infection (Primary Dx); Vaginal odor; Vaginal discharge 09/04/[address] [facility] Scheduling [address] [place] [address] Lucía Isaac 08/03/2024 Telephone [facility] [address] [facility] [address], [place] [phone] Charly Mccloud MD Test Results 07/31/2024 1:45 PM STOPPER MAKER Office Visit [facility] 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 Normalization could still happen in next few month Work up for PCOS can be done in the future in needed Patient to continue to work with her OB regarding menstruation and fertility. Immunizations Immunization Administration Dates Next Due Tdap 08/22/2021(Deferred: Other - discussed with Dr. Mccloud and he said not to give it.) Social History Tobacco Use Types Packs/Day Years [...] staff should administer the PHQ-9) 0 02/12/2023 [place] Depression Scale Answer Date Recorded [place] Depression Scale Total 4 05/13/2023 The thought [...] Orientation Straight 05/23/2020 2: 54 PM CDT Last Filed Vital Signs Vital Sign Reading Time Taken Comments Blood Pressure 117/82 10/16/2024 10:40 AM STOPPER MAKER Pulse 84 10/16/2024 10:40 AM STOPPER MAKER Temperature 36.8 C (98.3 F) 10/16/2024 10:40 AM STOPPER MAKER Respiratory Rate 20 05/14/2023 9:10 AM CDT Oxygen Saturation 99% 10/16/2024 10:40 AM STOPPER MAKER Inhaled Oxygen Concentration - - Weight 94.6 kg (208 lb 8 oz) 10/16/2024 10:40 AM STOPPER MAKER Height 160 cm (5' 3 ) 10/16/2024 10:40 AM STOPPER MAKER Body Mass Index 36.93 10/16/2024 10:40 AM STOPPER MAKER Plan of Treatment Not on file Goals Goal Patient Goal Type Associated Problems Recent Progress Patient-Stated? Author CCM Chronic Pain Care Plan Chronic Care Management Worsening( 8:27 AM STOPPER MAKER) Gaby Johnson RN Note: Problem: Chronic Pain Goals: 1. Minimize further functional decline 2. Maximize quality of life 3. Control pain Strategies: - Activity/exercise program recommendation - Conservative stepwise pain medicine strategy with multi-disciplinary approach - Recommend healthy lifestyle strategies and compensatory methods as needed Procedures Procedure Name Priority Date/Time Associated Diagnosis Comments NUSWAB VG, EUGENIA 6SP Routine 09/25/2024 10:43 AM STOPPER MAKER NUSWAB VG, EUGENIA 6SP Routine 07/31/2024 2:40 AM STOPPER MAKER HEPATITIS PANEL, ACUTE Routine 08/22/2021 3:08 AM STOPPER MAKER from Last 3 Months or Most Recently Relevant to Health Maintenance Results * NuSwab VG, Eugenia 6sp (09/25/2024 10:43 AM STOPPER MAKER) Atopobium vaginae Low - 0 Score [facility] [...] [facility] - 01 09/25/2024 10:4 3 AM STOPPER MAKER 09/25/2024 Comment:[place] Narrative [facility] - 09/28/2024 6:07 AM STOPPER MAKER Test(s) 297213- Atopobium vaginae; 930027- BVAB 2; 625438- Megasphaera 1 was developed and its performance characteristics determined by [facility]. It has not been cleared or approved by the Food and Drug Administration. Test(s) 619322-Lvmukyy albicans, TODD; 661683-Jsextem glabrata, TODD; 056739-F parapsilosis/tropicalis; 473925-Svlrsru lusitaniae, TODD; 653424-Rbmzouq krusei, TODD was developed and its performance characteristics determined by [facility]. It has not been cleared or approved by the Food and Drug Administration. Performed at: - [address] [id number] Creative Specialist: Mi Hansen MD, Phone: [phone] us Lucero Tomas NP LAB BLOOD ORDERABLES F [facility]al Result [facility] - * (ABNORMAL) NuSwab VG, Eugenia 6sp (07/31/2024 2:40 AM STOPPER MAKER) Atopobium vaginae Low - 0 Score [facility] [...] Negative [facility] - 01 07/31/2024 2:40 AM STOPPER MAKER 07/31/2024 Comment:[place] Narrative [facility] - 08/03/2024 11:10 AM STOPPER MAKER Test(s) 944577- Atopobium vaginae; 228848- BVAB 2; 106779- Megasphaera 1 was developed and its performance characteristics determined by [facility]. It has not been cleared or approved by the Food and Drug Administration. Test(s) 053099-Vivqzsx albicans, TODD; 338142-Orxqtjr glabrata, TODD; 823135-R parapsilosis/tropicalis; 579872-Zrymaji lusitaniae, TODD; 947925-Rtalvif krusei, TODD was developed and its performance characteristics determined by [facility]. It has not been cleared or approved by the Food and Drug Administration. Performed at: 01 - [address] [id number] Creative Specialist: Mi Hansen MD, Phone: [phone] Charly Mccloud MD LAB BLOOD ORDERABLES Samantha martinez Result [facility] - * Hepatitis panel, acute (08/22/2021 3:08 AM STOPPER MAKER) Hep A IgM Nonreactive Nonreactive [facility] Comment: Interpretive Data: If Hep A IgM Ab is reported as Equivocal, a new sample should be drawn in two weeks for testing. Current interpretive data was last revised on 19. Hep B core IgM Nonreactive Nonreactive [facility] Comment: Interpretive Data If HepB Core IgM Ab is reported as Equivocal, a new sample should be drawn in two weeks for testing. Current interpretive data was last revised on 19. Hep C Ab Nonreactive Nonreactive [facility] Comment: Interpretive Data Nonreactive: Antibodies to HCV [...] last revised on 2019. HepBsAg Nonreactive Nonreactive [facility] HepBsAg Nonreactive Nonreactive [facility] Blood 08/22/2021 3:08 AM STOPPER MAKER 08/22/2021 3:50 AM STOPPER MAKER Charly Mccloud MD LAB MICROBIOLOGY - [facility] L ORDERABLES Final Result Performing Organization Address City/State/[facility] Co de Phone Number [facility] [address] Department [place] [address] from Last 3 Months or Most Recently Relevant to Health Maintenance Insurance [employer] OPEN ACCESS C[employer] OPEN ACCESS Advance Directives For more information, please contact: [phone] * Full Code (Latest Code Status on [...] n case of cardiopulmonary arrest Care Teams Boat Detailer Relationship Specialty Start Date End Date Mukul Hector MD PCP - General 07/11/21 Charly Mccloud MD [address] [facility] [address] [place] [address] Consulting Physician Obstetrics and Gynecology 08/22/21
[2024-10-31 19:33] VITALS: BP 130/73; PULSE 84; RESP 20; TEMP 36.3; O2SAT 100
[2024-10-31 20:56] VITALS: BP 107/46; PULSE 110; RESP 20; TEMP 36.6; O2SAT 100
--- NOTE | 2024-10-31 21:46 | ECG_ITS ---
Test Date: 2024-10-31 22:51:12 Measurements Intervals [place] Rate: 90 P: 24 NV: 146 QRS: 40 QRSD: 90 T: 7 QT: 358 QTc: 440 Interpretive Statements SINUS RHYTHM MINIMAL Q WAVES- DIFFUSE LEADS BORDERLINE T WAVE ABNORMALITY- INFERIOR LEADS No previous ECG available for comparison- I, II, AVR, AVL, V1 BORDERLINE ECG Electronically Signed On 11-01-2024 07:17:20 LEG BREAKER by Rayo Belcher D.O.
--- OUTSIDE RECORDS SUMMARY | 2024-10-31 21:47 | XMS_ITS | Clinical Summary ---
Author Organization [facility] Address [address] [place] [address] Phone Care Team Providers Care Retail Cashier Associate Name Role Phone Mukul Hector MD Primary Care Provider [phone] Basim Lehman MD Unavailable [phone] Annetta Chinchilla REVENUE RESEARCH ANALYST, CERTIFIED MASTER SAFECRACKER Unavailable + [phone] Allergies No known active allergies Medications Dupilumab [...] patient's age to complete this topic Insurance [facility] [place] [address] Care Teams Retail Cashier Associate Relationship Specialty Start Date End Date Mukul Hector MD [address] [place] [address] PCP - General Family Medicine 12/06/21 Basim Lehman MD [address] [place] [address] Consulting Physician Neurology 12/06/21 Annetta Chinchilla, REVENUE RESEARCH ANALYST, CERTIFIED MASTER SAFECRACKER [address] [place] [address] Nurse Practitioner Advanced Practice Nurse 05/31/22
--- OUTSIDE RECORDS SUMMARY | 2024-10-31 21:47 | XMS_ITS | Encounter Summary ---
Author Organization [facility] Address [address] [place] [address] Phone Care Team Providers Care Rigging Loft Repairer Name Role Phone Mukul Hector MD Primary Care Provider [phone] Charly Mccloud MD Unavailable [phone] Encounter Details Date Type Department Care Team (Late st Contact Info) Description 10/22/2024 Telephone [facility] General Neurology [address] [facility] 6th Floor [address] [place] [address] Edvin Warner RN Social History [...] staff should administer the PHQ-9) 0 02/12/2023 Pur[place] Depression Scale Answer Date Recorded [place] Depression Scale Total 4 05/13/2023 The thought [...] Edvin Warner RN - 10/22/2024 11:08 AM FORENSIC STRUCTURAL ENGINEER Patient called to let us know [employer] is requiring prior authorization. Unfortunately we have not received anything from the pharmacy. I contacted the pharmacy and they were on lunch break. Left a message with the pharmacy requesting they fax us the information needed for prior authorization. Will leave on task list. NSIC STRUCTURAL ENGINEER documented in this encounter Plan of Treatment Not on file documented as of this encounter Goals Goal Patient Goal Type Associated Problems Recent Progress Patient-Stated? Author CCM Chronic Pain Care Plan Chronic Care Management Worsening( 8:27 AM FORENSIC STRUCTURAL ENGINEER) No Gaby Mcgee RN Note: Problem: Chronic Pain Goals: 1. Minimize further functional decline 2. Maximize quality of life 3. Control pain Strategies: - Activity/exercise program recommendation - Conservative stepwise pain medicine strategy with multi-disciplinary approach - Recommend healthy lifestyle strategies and compensatory methods as needed documented as of this encounter Visit Diagnoses Not on filedocumented in this encounter Care Teams Rigging Loft Repairer Relationship Specialty Start Date End Date Mukul Hector MD PCP - General 07/11/21 Charly Mccloud MD [address] [facility] [address] [place] [address] Consulting Physician Obstetrics and Gynecology 08/22/21 documented as of this encounter
--- OUTSIDE RECORDS SUMMARY | 2024-10-31 21:47 | XMS_ITS | Clinical Summary ---
Author Organization [facility] Address [address] [place] [address] Care Team Providers Care Industrial Hygiene Engineer Name Role Phone Unavailable Primary Care Provider Unavailabl e Source Comments [facility] [employer],non-owned Affiliates and Associated Physician Practices is amultiple site organization consisting of ambulatory clinics and hospital sitesin [place], [place], [place] and [place]. This disclosure is being madepursuant to the Care Everywhere program and may not contain all information available regarding this patient. Last updated 18.[facility] [employer] Social History Tobacco Use Types Packs/Day Years [...]
--- OUTSIDE RECORDS SUMMARY | 2024-10-31 21:47 | XMS_ITS | Encounter Summary ---
Author Organization [facility] Address [address] [place] [address] Care Team Providers Care Director Of Hotel Operations Name Role Phone Unavailable Primary Care Provider Unavailabl e Encounter Details Date Type Department Care Team (Late st Contact Info) Description 03/09/2024 Lab Requisition [facility] - DermPath Lab [address] [facility], [place] [address] Sandra Ramsey MD [address] [facility] 3 [place] [address] Social History Tobacco Use Types Packs/Day Years [...] AM CDT) Case Report Dermatopathology Report Case: [id number] Authorizing Provider: Sandra Ramsey MD Collected: 03/09/2024 07:44 AM Ordering Location: [facility] Physician [facility] - Received: 03/09/2024 01:04 PM DermPath Lab [...] characteristic determined by the Dermatopathology Laboratory at [facility], directed by Dr. Kvng Gleason. These tests need not be, and therefore are not, approved by the [place] Food and Drug Administration. The tests are used for clinical purposes. Billing Codes Specimen Charges Stain Charges 61968 1 4 2:25 PM CDT DERMATOPATHOLOGY LABORATORY Embedded Images 2:25 PM CDT DERMATOPATHOLOGY LABORATORY Pathology/Cytolo gy TISSUE SPECIMEN FROM SKIN / Unknown 03/09/2024 7:44 AM CDT 03/09/2024 1:04 PM CDT Sandra Ramsey MD LAB - PATHOLOGY/CYTO LOGY ORDERABLES DERMATOPATHOLOGY LABORATORY [facility] - Department of Dermatology [address], 3rd Floor [address] [phone] documented in this encounter Visit Diagnoses Not on filedocumented in this encounter
--- OUTSIDE RECORDS SUMMARY | 2024-10-31 21:47 | XMS_ITS | Referral Summary ---
Author Organization [facility] Address [address] [place] [address] Care Team Providers Care Bow Maker Custom Name Role Phone Unavailable Primary Care Provider Unavailabl e Source Comments [facility],non-owned Affiliates and Associated Physician Practices is amultiple site organization consisting of ambulatory clinics and hospital sitesin [place], [place], [place] and [place]. This disclosure is being madepursuant to the Care Everywhere program and may not contain all information available regarding this patient. Last updated 18.[facility] Agency [employer] Social History Tobacco Use Types Packs/Day Years Used Date Smoking Tobacco: Never Assessed Sex and Gender Information Value Date Recorded Sex Assigned at Not on file Gender Identity Not on file Sexual Orientation Not on file Plan of Treatment Not on file
--- OUTSIDE RECORDS SUMMARY | 2024-10-31 21:47 | XMS_ITS | Clinical Summary ---
Author Organization [facility] Address [address] [place] [address] Care Team Providers Care Vehicle Service Attendant Name Role Phone Mukul Hector MD Primary Care Provider [phone] Charly Mccloud MD Unavailable [phone] Allergies No known active allergies Medications ferrous [...] irregular periods could be still related to ocean transportation intermediary treatment with BCP. Normalization could still happen in next few month Work up for PCOS can be done in the future in needed Patient to continue to work with her OB regarding menstruation and fertility. Encounters Date Type Department Care Team Description 10/22/2024 Telephone [facility] General Neurology [address] [place] [address] Oral Mancia MD [facility] 10/22/2024 Telephone [facility] General Neurology [address] [facility] 6th Floor [address] [place] [address] Edvin Warner RN 10/16/2024 11:00 AM YARN PREPARATION SUPERVISOR Office Visit [facility] General Neurology [address] [facility] 6th Floor [address] [place] [address] Oral Mancia MD Acquired hypothyroidism (Primary Dx); Vestibular migraine; Polycystic ovarian syndrome; Vitamin D deficiency 09/25/2024 9:45 AM YARN PREPARATION SUPERVISOR Office Visit [facility] Medical Office Building [address] [place] [address] Lucero Tomas NP Vaginal infection (Primary Dx); Vaginal odor; Vaginal discharge 09/04/2024 Telephone [facility] Scheduling [address] [place] [address] Lucía IsaacKasie 08/03/2024 Telephone [facility] [address] [facility] Office [address] [address] Charly Mccloud MD Test Results 07/31/2024 1:45 PM YARN PREPARATION SUPERVISOR Office Visit [facility] [address] [facility] Office Building [address], [place] [address] Charly Mccloud MD Vaginal infection [...] staff should administer the PHQ-9) 0 02/12/2023 Ballinger Depression Scale Answer Date Recorded Ballinger Depression Scale Total 4 05/13/2023 The thought [...] Lyubov Moses CNM Delivery Location:This Facil ity ([facility]) 2022 Term 37w 2d 0h 49m 0h 42m/0h 07m 3.18 kg (7 lb 0.2 oz) F Vagina l Epidur al N Livin g 8 9 NORRI S,GIR LMOLL Y Matthew Agustin MD Delivery Location:This Facil ity ([facility]) Last Filed Vital Signs Vital Sign Reading Time Taken Comments Blood Pressure 117/82 10/16/2024 10:40 AM YARN PREPARATION SUPERVISOR Pulse 84 10/16/2024 10:40 AM YARN PREPARATION SUPERVISOR Temperature 36.8 C (98.3 F) 10/16/2024 10:40 AM YARN PREPARATION SUPERVISOR Respiratory Rate 20 05/14/2023 9:10 AM CDT Oxygen Saturation 99% 10/16/2024 10:40 AM YARN PREPARATION SUPERVISOR Inhaled Oxygen Concentration - - Weight 94.6 kg (208 lb 8 oz) 10/16/2024 10:40 AM YARN PREPARATION SUPERVISOR Height 160 cm (5' 3 ) 10/16/2024 10:40 AM YARN PREPARATION SUPERVISOR Body Mass Index 36.93 10/16/2024 10:40 AM YARN PREPARATION SUPERVISOR Plan of Treatment Health Maintenance Due Date [...] Plan Chronic Care Management Worsening( 8:27 AM YARN PREPARATION SUPERVISOR) No Gaby Mcgee RN Note: Problem: Chronic Pain Goals: 1. Minimize further functional decline 2. Maximize quality of life 3. Control pain Strategies: - Activity/exercise program recommendation - Conservative stepwise pain medicine strategy with multi-disciplinary approach - Recommend healthy lifestyle strategies and compensatory methods as needed Procedures Procedure Name Priority Date/Time Associated Diagnosis Comments NUSWAB VG, EUGENIA 6SP Routine 09/25/2024 10:43 AM YARN PREPARATION SUPERVISOR NUSWAB VG, EUGENIA 6SP Routine 07/31/2024 2:40 AM YARN PREPARATION SUPERVISOR HEPATITIS PANEL, ACUTE Routine 08/22/2021 3:08 AM YARN PREPARATION SUPERVISOR from Last 3 Months or Most Recently Relevant to Health Maintenance Results * NuSwab VG, Eugenia 6sp (09/25/2024 10:43 AM YARN PREPARATION SUPERVISOR) Atopobium vaginae Low - 0 Score [facility] [...] [facility] - 01 09/25/2024 10:4 3 AM YARN PREPARATION SUPERVISOR 09/25/2024 Comment:[place] Narrative [facility] - 09/28/2024 6:07 AM YARN PREPARATION SUPERVISOR Test(s) 630647- Atopobium vaginae; 893422- BVAB 2; 138070- Megasphaera 1 was developed and its performance characteristics determined by [facility]. It has not been cleared or approved by the Food and Drug Administration. Test(s) 341818-Xsmztrg albicans, TODD; 799005-Rvejpjd glabrata, TODD; 068074-H parapsilosis/tropicalis; 050762-Pnazwts lusitaniae, TODD; 236548-Stekxti krusei, TODD was developed and its performance characteristics determined by [facility]. It has not been cleared or approved by the Food and Drug Administration. Performed at: - Lab[address] [id number] Director Of Home Economics: Mi Hansen MD, Phone: [phone] us Lucero Tomas NP LAB BLOOD ORDERABLES F inal Result [facility] - * (ABNORMAL) NuSwab VG, Eugenia 6sp (07/31/2024 2:40 AM YARN PREPARATION SUPERVISOR) Atopobium vaginae Low - 0 Score [facility] [...] Negative [facility] - 01 07/31/2024 2:40 AM YARN PREPARATION SUPERVISOR 07/31/2024 Comment:PAYAL Montoya [facility] - 08/03/2024 11:10 AM YARN PREPARATION SUPERVISOR Test(s) 756806- Atopobium vaginae; 837946- BVAB 2; 934086- Megasphaera 1 was developed and its performance characteristics determined by [facility]. It has not been cleared or approved by the Food and Drug Administration. Test(s) 956011-Bvdnrsq albicans, TODD; 096089-Zgwgmjv glabrata, TODD; 374291-U parapsilosis/tropicalis; 206661-Mwcobvc lusitaniae, TODD; 655536-Kvigzwj krusei, TODD was developed and its performance characteristics determined by [facility]. It has not been cleared or approved by the Food and Drug Administration. Performed at: 01 - [facility] [id number] Director Of Home Economics: Mi Hansen MD, Phone: [phone] Charly Mccloud MD LAB BLOOD ORDERABLES Samantha martinez Result [facility] - 01 * Hepatitis panel, acute (08/22/2021 3:08 AM YARN PREPARATION SUPERVISOR) Hep A IgM Nonreactive Nonreactive [facility] Comment: Interpretive Data: If Hep A IgM Ab is reported as Equivocal, a new sample should be drawn in two weeks for testing. Current interpretive data was last revised on 19. Hep B core IgM Nonreactive Nonreactive [facility] Comment: Interpretive Data If HepB Core IgM Ab is reported as Equivocal, a new sample should be drawn in two weeks for testing. Current interpretive data was last revised on 19. Hep C Ab Nonreactive Nonreactive [facility] Comment: Interpretive Data Nonreactive: Antibodies to [...] last revised on 2019. HepBsAg Nonreactive Nonreactive [facility] HepBsAg Nonreactive Nonreactive [facility] Blood 08/22/2021 3:08 AM YARN PREPARATION SUPERVISOR 08/22/2021 3:50 AM YARN PREPARATION SUPERVISOR Charly Mccloud MD LAB MICROBIOLOGY - GENERA L ORDERABLES Final Result [facility] [address] [place] [address] from Last 3 Months or Most Recently Relevant to Health Maintenance Insurance [facility] [employer]IG[employer] OPEN ACCESS Advance Directives For more information, please contact: [phone] * Full Code (Latest Code Status on [...] n case of cardiopulmonary arrest Care Teams Vehicle Service Attendant Relationship Specialty Start Date End Date Mukul Hector MD PCP - General 07/11/21 Charly Mccloud MD [address] [facility] [address] [place] [address] Consulting Physician Obstetrics and Gynecology 08/22/21
--- OUTSIDE RECORDS SUMMARY | 2024-10-31 21:47 | XMS_ITS | Patient Health Summary ---
Author Organization [facility] Address [address] [place] [address] Care Team Providers Care Streetsweeper Operator Name Role Phone Unavailable Primary Care Provider Unavailabl e Note from [facility],non-owned Affiliates and Associated Physician Practices is amultiple site organization consisting of ambulatory clinics and hospital sitesin [place], [place], [place] and [place]. This disclosure is being madepursuant to the Care Everywhere program and may not contain all information available regarding this patient. Last updated 18.[facility] [employer] Social History Tobacco Use Types Packs/Day Years Used Date Smoking Tobacco: Never Assessed Sex and Gender Information Value Date Recorded Sex Assigned at Not on file Gender Identity Not on file Sexual Orientation Not on file Procedures * DERMATOPATHOLOGY(Performed 03/09/2024) Results * DERMATOPATHOLOGY (03/09/2024 7:44 AM CDT) Case Report Dermatopathology Report Case: [id number] Authorizing Provider: Sandra Ramsey MD Collected: 03/09/2024 07:44 AM Ordering Location: [facility] - Received: 03/09/2024 01:04 PM [...] determined by the Dermatopathology Laboratory at [facility], directed by Dr. Kvng Gleason. These tests need not be, and therefore are not, approved by the [place] Food and Drug Administration. The tests are used for clinical purposes. Billing Codes Specimen Charges Stain Charges 45482 1 4 2:25 PM CDT DERMATOPATHOLOGY LABORATORY Embedded Images 4 2:25 PM CDT DERMATOPATHOLOGY LABORATORY Pathology/Cytolo gy TISSUE SPECIMEN FROM SKIN / Unknown 03/09/2024 7:44 AM CDT 03/09/2024 1:04 PM CDT Sandra aRmsey MD LAB - PATHOLOGY/CYTO LOGY ORDERABLES DERMATOPATHOLOGY LABORATORY [facility] - Department of Dermatology [facility] Medicine [address] [place] [address], [address]rd Floor [address] [phone]
--- OUTSIDE RECORDS SUMMARY | 2024-10-31 21:47 | XMS_ITS | Referral Summary ---
Author Organization [facility] Address [address] [place] [address] Care Team Providers Care Manager Supply Chain Name Role Phone Mukul Hector MD Primary Care Provider [phone] Charly Mccloud MD Unavailable [phone] Encounters Date Type Department Care Team Description 10/22/2024 Telephone [facility] General Neurology [address] [place] [address] [facility] 10/22/2024 Telephone [facility] General Neurology [address] [facility] 6th Floor [address] [place] [address] Edvin Warner RN 10/16/2024 11:00 AM DRESSING MACHINE OPERATOR Office Visit [facility] General Neurology [address] [facility] 6th Floor [address] [place] [address] Oral Mancia MD Acquired hypothyroidism (Primary Dx); Vestibular migraine; Polycystic ovarian syndrome; Vitamin D deficiency 09/25/2024 9:45 AM DRESSING MACHINE OPERATOR Office Visit [facility] [address] [place] [address] Medical Office Building [address] [place] [phone] Lucero Tomas NP Vaginal infection (Primary Dx); Vaginal odor; Vaginal discharge 09/04/2024 Telephone [facility] Scheduling [address] [place] [address] Lucía Isaac 08/03/2024 Telephone [facility] [address], [place] [address] Charly Mccloud MD Test Results 07/31/2024 1:45 PM DRESSING MACHINE OPERATOR Office Visit [facility], [place] [address] Charly Mccloud MD Vaginal infection (Primary Dx) [...] irregular periods could be still related to intermediate manager treatment with BCP. Normalization could still happen [...] staff should administer the PHQ-9) 0 02/12/2023 Rawlins Depression Scale Answer Date Recorded Rawlins Depression Scale Total 4 05/13/2023 The thought [...] Comments Blood Pressure 117/82 10/16/2024 10:40 AM DRESSING MACHINE OPERATOR Pulse 84 10/16/2024 10:40 AM DRESSING MACHINE OPERATOR Temperature 36.8 C (98.3 F) 10/16/2024 10:40 AM DRESSING MACHINE OPERATOR Respiratory Rate 20 05/14/2023 9:10 AM CDT Oxygen Saturation 99% 10/16/2024 10:40 AM DRESSING MACHINE OPERATOR Inhaled Oxygen Concentration - - Weight 94.6 kg (208 lb 8 oz) 10/16/2024 10:40 AM DRESSING MACHINE OPERATOR Height 160 cm (5' 3 ) 10/16/2024 10:40 AM DRESSING MACHINE OPERATOR Body Mass Index 36.93 10/16/2024 10:40 AM DRESSING MACHINE OPERATOR Plan of Treatment Not on file Goals Goal Patient Goal Type Associated Problems Recent Progress Patient-Stated? Author CCM Chronic Pain Care Plan Chronic Care Management Worsening( 8:27 AM DRESSING MACHINE OPERATOR) Gaby Johnson RN Note: Problem: Chronic Pain Goals: 1. Minimize further functional decline 2. Maximize quality of life 3. Control pain Strategies: - Activity/exercise program recommendation - Conservative stepwise pain medicine strategy with multi-disciplinary approach - Recommend healthy lifestyle strategies and compensatory methods as needed Procedures Procedure Name Priority Date/Time Associated Diagnosis Comments NUSWAB VG, EUGENIA 6SP Routine 09/25/2024 10:43 AM DRESSING MACHINE OPERATOR NUSWAB VG, EUGENIA 6SP Routine 07/31/2024 2:40 AM DRESSING MACHINE OPERATOR HEPATITIS PANEL, ACUTE Routine 08/22/2021 3:08 AM DRESSING MACHINE OPERATOR from Last 3 Months or Most Recently Relevant to Health Maintenance Results * NuSwab VG, Eugenia 6sp (09/25/2024 10:43 AM DRESSING MACHINE OPERATOR) Atopobium vaginae Low - 0 [...] [facility] - 01 09/25/2024 10:4 3 AM DRESSING MACHINE OPERATOR 09/25/2024 Comment:[place] Narrative [facility] - 09/28/2024 6:07 AM DRESSING MACHINE OPERATOR Test(s) 863862- Atopobium vaginae; 687525- BVAB 2; 402546- Megasphaera 1 was developed and its performance characteristics determined by [facility]. It has not been cleared or approved by the Food and Drug Administration. Test(s) 579042-Pslapuv albicans, TODD; 638600-Njsvylz glabrata, TODD; 298988-F parapsilosis/tropicalis; 549437-Zygfiuh lusitaniae, TODD; 634510-Nbfjmle krusei, TODD was developed and its performance characteristics determined by [facility]. It has not been cleared or approved by the Food and Drug Administration. Performed at: - [address] [id number] Building Superintendent: Mi Hansen MD, Phone: [phone] us Lucero Tomas NP LAB BLOOD ORDERABLES F inal Result [facility] - * (ABNORMAL) NuSwab VG, Eugenia 6sp (07/31/2024 2:40 AM DRESSING MACHINE OPERATOR) Atopobium vaginae Low - 0 [...] Negative [facility] - 01 07/31/2024 2:40 AM DRESSING MACHINE OPERATOR 07/31/2024 Comment:[place] Narrative [facility] - 08/03/2024 11:10 AM DRESSING MACHINE OPERATOR Test(s) 068102- Atopobium vaginae; 551437- BVAB 2; 335816- Megasphaera 1 was developed and its performance characteristics determined by [facility]. It has not been cleared or approved by the Food and Drug Administration. Test(s) 481486-Vxhagaf albicans, TODD; 057878-Vshezoe glabrata, TODD; 956716-C parapsilosis/tropicalis; 502769-Qwnojrm lusitaniae, TODD; 416660-Rhperzk krusei, TODD was developed and its performance characteristics determined by [facility]. It has not been cleared or approved by the Food and Drug Administration. Performed at: 01 - [address] [id number] Building Superintendent: Mi Hansen MD, Phone: [phone] Charly Mccloud MD LAB BLOOD ORDERABLES Samantha martinez Result [facility] - * Hepatitis panel, acute (08/22/2021 3:08 AM DRESSING MACHINE OPERATOR) Hep A IgM Nonreactive Nonreactive [facility] Comment: Interpretive Data: If Hep A IgM Ab is reported as Equivocal, a new sample should be drawn in two weeks for testing. Current interpretive data was last revised on 19. Hep B core IgM Nonreactive Nonreactive [facility] Comment: Interpretive Data If HepB Core IgM Ab is reported as Equivocal, a new sample should be drawn in two weeks for testing. Current interpretive data was last revised on 19. Hep C Ab Nonreactive Nonreactive [facility] Comment: Interpretive Data Nonreactive: Antibodies to HCV [...] last revised on 2019. HepBsAg Nonreactive Nonreactive [facility] HepBsAg Nonreactive Nonreactive [facility] Blood 08/22/2021 3:08 AM DRESSING MACHINE OPERATOR 08/22/2021 3:50 AM DRESSING MACHINE OPERATOR Charly Mccloud MD LAB MICROBIOLOGY - [facility] ORDERABLES Final Result Performing Organization Address City/State/[facility] Co de Phone Number [facility] [address] Department [place] [address] from Last 3 Months or Most Recently Relevant to Health Maintenance Insurance [facility] CHOICE PLUS [facility] H[facility]/PPO Address: [id number] [place] [address] [facility] CHOICE [facility]US [facility]/PPO Address: [address] [place] [address] [employer] OPEN ACCESS C[employer] OPEN ACCESS Advance Directives For more information, please contact: [phone] * Full Code (Latest Code Status on [...] n case of cardiopulmonary arrest Care Teams Manager Supply Chain Relationship Specialty Start Date End Date Mukul Hector MD PCP - General 07/11/21 Charly Mccloud MD [address] [facility] [address] [place] [address] Consulting Physician Obstetrics and Gynecology 08/22/21
[2024-10-31 22:30] LABS: Basophils Absolute Auto 0.1 K/mm3 (0.0-0.1); Basophils Percent Auto 0.7 % (0.2-1.2); Eosinophils Percent Auto 0.5 % (0-4.4); Hematocrit 42.8 % (37.0-47.0); Hemoglobin 14.5 g/dL (12.0-15.0); Immature Granulocyte Absolute 0.01 K/mm3 (0.00-0.031); Immature Granulocyte Percent A 0.1 % (0-0.5); Lymphocytes Absolute Auto 1.38 K/mm3 (0.9-3.2); Lymphocytes Percent Auto 16.4 % (18.3-44.2); Mean Corpuscular HGB Conc 33.9 g/dl (32-36); Mean Corpuscular Hemoglobin 30.2 pg (26-34); Mean Corpuscular Volume 89.2 fl (80-100); Mean Platelet Volume 8.8 fl (7.4-10.4); Monocytes Absolute Auto 0.4 K/mm3 (0.1-0.6); Monocytes Percent Auto 5.2 % (2.6-8.5); Neutrophils Absolute Auto 6.5 K/mm3 (1.3-6.7); Neutrophils Percent Auto 77.1 % (45.5-73.1); Platelet Count Result 361 k/mm3 (150-375); Red Cell Distribution Width 12.2 % (11.5-14.5); White Blood Count 8.4 K/mm3 (4.5-10.0)
--- NOTE | 2024-10-31 22:37 | ED_ITS ---
HPI - Dizziness General Chief Complaint: Dizziness Stated Complaint: DIZZINESS/RAPID HEART RATE Time Seen by Provider: 10/31/24 21:21 History of Present Illness HPI Narrative: Patient is a 34-year-old female who presents to the emergency department this evening with multiple complaints. Patient presents with her mother and states that for the past few months she has been having episodes of lightheadedness and feeling as though she is going to pass out. She has followed up with her primary care physician who recommended that she follows up with a tapper helper and get fitted for a Holter monitor to check for any arrhythmias, however, patient has not had a chance to do that yet. Patient is also being under a lot of life stressors lately, has had a stillborn over a year ago and very complicated recent and is currently on multiple anxiety medications. Patient states that within the past few days her anxiety medications were changed and mother feels as though some of her symptoms could be precipitated by the changed in her med from Ativan to Prozac this past Saturday, 4 days ago. Patient also states that she had the recently changed her migraine medication last week. She does have a history of migraines. Currently denying any headaches at this. Admits that she does feel anxious at the moment. Denies any chest pain or shortness of breath. No additional symptoms or concerns at this time. Patient denies any suicidal homicidal ideations. Related Data Home Medications ?Medication ?Instructions ?Recorded ?Confirmed ?Last Taken ?Type docosahexaenoic acid [ DHA] PO 03/04/20 02/12/22 Unknown History cholecalciferol (vitamin D3) 50 50 mcg PO DAILY 09/07/21 02/12/22 Unknown History mcg (2,000 unit) capsule methylphenidate HCl 5 mg tablet 5 mg PO DAILY 02/12/22 02/12/22 Unknown History sumatriptan succinate 25 mg tablet 25 mg PO ONCE 02/12/22 02/12/22 Unknown History vitamin B complex (B 1 tablet PO DAILY 02/12/22 02/12/22 Unknown History Complex-Vitamin B12 tablet) Allergies Allergy/AdvReac Type Severity Reaction Status Date / Time No Known Allergies Allergy Verified 10/31/24 19:40 Review of Systems 2 Review of Systems: All systems are reviewed and are negative unless stated otherwise in the HPI. [facility] Past Medical History Medical History Low vitamin D level Eczema Thyroid disease Family History Family History Father Borderline diabetes Grandparent Breast cancer Diabetes mellitus Social History Social History Smoking status: Never smoker Alcohol intake: current Drinks per week: 5 Substance use: never Lack of Transportation: No Lack of Food: Never True Current Housing: I Do Not Have Housing Concerned About Future Housing: No Difficulty Paying Gas/Electric Bills: No Difficulty Paying for Meds: No Currently Unemployed: No Education: Bachelor's Degree Difficulty w/ Childcare or Family Care: No Living arrangements: with family Exam 2 Narrative: General: Alert, awake, afebrile, very anxious. HEENT: PERRL, no rhinorrhea, no post nasal drip, oropharynx clear. Neck: Trachea midline, no JVD, no lymphadenopathy. Cardiovascular: Tachycardic with regular rhythm, no murmurs, rubs or gallops, no peripheral edema. Respiratory: Clear to auscultation bilaterally, no tachypnea, no wheezing, no rhonchi, no rubs, no respiratory distress. Abdomen: Soft, nontender, nondistended, no rebound, no guarding, no peritoneal signs. Musculoskeletal: No joint swelling or deformity, normal muscle tone. Skin: No rashes or petechia, no signs of infection. Psychiatric: Alert and oriented, anxious otherwise normal behavior and judgment for situation. Neurological: Alert and oriented to person, place, and time. Follows all commands. No focal deficits, speech is clear and fluent. Course Vital Signs Vital signs: Vital Signs Temperature 97.4 F L 10/31/24 19:33 Pulse Rate 84 10/31/24 19:33 Respiratory Rate 20 10/31/24 19:33 Blood Pressure 130/73 10/31/24 19:33 Pulse Oximetry 100 10/31/24 19:33 Oxygen Delivery Room Air 10/31/24 19:33 Temperature 97.8 F 10/31/24 20:56 Pulse Rate 110 H 10/31/24 20:56 Respiratory Rate 20 10/31/24 20:56 Blood Pressure 107/46 L 10/31/24 20:56 Pulse Oximetry 100 10/31/24 20:56 Oxygen Delivery Room Air 10/31/24 19:33 MDM - Dizziness MDM Narrative Medical decision making narrative: The patient was evaluated by myself in the emergency department. History is obtained from patient who is an independent historian along with mother present at bedside and physical exam was performed. External medical records were reviewed at this time. IV was established and pertinent tests were ordered. Patient was administered 1 L IV fluid bolus with normal saline. EKG was obtained which revealed sinus rhythm at a rate of 90 beats per minute. No ST changes, T wave inversions or evidence of acute ischemia. EKG was independently interpreted by me and is currently pending official cardiology read. Laboratory results obtained revealing no acute process. Viral swabs were obtained and noted to be negative for COVID/influenza/RSV. Imaging studies obtained included CXR which was independently interpreted by me revealing no acute cardiopulmonary process, which is pending final radiology interpretation. Differential diagnosis considerations include acute stress reaction, anxiety, dehydration, electrolyte derangements, acute viral syndrome. Comorbidities impacting this visit include history of anxiety. I have evaluated and discussed social determinants of health with the patient that could potentially impact subsequent diagnosis and treatment plans. On repeat assessment of the patient, reevaluation revealed that the patient is doing well and is in no acute distress. Patient symptoms have improved since she arrived to our emergency department. Repeat vital signs were all reviewed and noted to be stable. Differential diagnosis and treatment plan were discussed with the patient at bedside. Patient agrees with discussion and after shared medical decision making agrees with discharge. All questions were answered to the patient's satisfaction. Patient will follow up with her PCP in 3-5 days. She was provided with a Cardiology referral instructed to call on Saturday to set up a follow-up appointment regarding her lightheadedness as she may need to be fitted for a Holter monitor. Patient was provided with strict return precautions and instructed to return to the emergency department if any new or worsening symptoms develop. The patient was discharged in stable condition. Lab Data 10/31/24 22:21 10/31/24 22:21 Labs: Lab Results 10/31/24 Range/Units 22:21 WBC 8.4 (4.5-10.0) K/mm3 RBC 4.80 (4.2-5.4) M/mm3 Hgb 14.5 (12.0-15.0) g/dL Hct 42.8 (37.0-47.0) % MCV 89.2 (80-100) fl MCH 30.2 (26-34) pg MCHC 33.9 (32-36) g/dl RDW 12.2 (11.5-14.5) % Plt Count 361 (150-375) k/mm3 MPV 8.8 (7.4-10.4) fl Immature Gran % (Auto) 0.1 (0-0.5) % Neut % (Auto) 77.1 H (45.5-73.1) % Lymph % (Auto) 16.4 L (18.3-44.2) % [place] % (Auto) 5.2 (2.6-8.5) % Eos % (Auto) 0.5 (0-4.4) % Baso % (Auto) 0.7 (0.2-1.2) % Lymph # (Auto) 1.38 (0.9-3.2) K/mm3 [place] # (Auto) 0.4 (0.1-0.6) K/mm3 Eos # (Auto) 0.0 (0-0.3) K/mm3 Baso # (Auto) 0.1 (0.0-0.1) K/mm3 Abs Immat Gran (auto) 0.01 (0.00-0.031) K/mm3 Absolute Neuts (auto) 6.5 (1.3-6.7) K/mm3 Absolute Nucleated RBC 0.000 (0.0-0.012) K/mm3 Nucleated RBC % 0.0 (0.0-0.2) % Sodium 140 (137-145) mmol/L Potassium 4.1 (3.4-5.0) mmol/L Chloride 104 (98-107) mmol/L Carbon Dioxide 21 L (22-30) mmol/L Anion Gap 15 H (4-12) mmol/L BUN 13 (7-17) mg/dL Creatinine 0.75 (0.7-1.0) mg/dL Estim Creat Clear Calc 100 ml/min Estimated GFR > 60 (59 - ) Glucose 95 (65-110) mg/dL Calcium 9.6 (8.4-10.2) mg/dL Magnesium 2.0 (1.6-2.3) mg/dL Total Bilirubin 0.7 (0.2-1.3) mg/dL AST 31 (14-36) U/L ALT 20 (6-35) U/L Alkaline Phosphatase 80 (38-126) U/L Total Protein 8.0 (6.3-8.2) g/dL Albumin 4.8 (3.5-5.1) g/dL Lipase 149 (23-300) U/L Serum HCG, Qual Negative Influenza A (RT-PCR) Negative (Negative) Influenza B (RT-PCR) Negative (Negative) RSV (RT-PCR) Negative (Negative) SARS-CoV-2 RNA (RT-PCR) Negative (Negative) Discharge Plan Discharge Clinical Impression: Anxiety, Lightheadedness Patient Disposition: Home, Self-Care Condition: Improved Instructions: Antibiotic Form, Lightheadedness (ED), Anxiety (ED) Additional Instructions: Please follow-up with your family doctor within the next 3-5 days. You also provided with a Cardiology referral instructed to call on Saturday to set up a follow-up appointment. Return to the ED if any new or worsening symptoms develop. Patient Language: Tajik Prescriptions: No Action dicyclomine 20 mg tablet 20 mg PO TID PRN (Reason: abdominal pain) Qty: 30 0RF fluoxetine [Prozac] 20 mg capsule 20 mg PO DAILY Qty: 90 1RF hydroxyzine HCl 25 mg tablet 25 mg PO TID PRN (Reason: anxiety) Qty: 30 0RF docosahexaenoic acid [ DHA] PO (DME) comp.stocking,knee,long,medium Misc See Rx Instructions .ROUTE .MEDSUPPLY Qty: 12 0RF Rx Instructions: As directed cholecalciferol (vitamin D3) 50 mcg (2,000 unit) capsule 50 mcg PO DAILY sumatriptan succinate 25 mg tablet 25 mg PO ONCE vitamin B complex [B Complex-Vitamin B12] Tablet 1 tablet PO DAILY methylphenidate HCl 5 mg tablet 5 mg PO DAILY prednisone 20 mg tablet 40 mg PO DAILY Qty: 10 0RF azithromycin [Zithromax Z-Eliot] 250 mg tablet See Rx Instructions PO .COMPLEX Qty: 6 0RF Rx Instructions: For 250 mg dose pack: take 500 mg today (day 1), then 250 mg for 4 days (days 2-5) PO topiramate 25 mg tablet 25 mg PO DAILY Qty: 30 0RF polyethylene glycol 3350 [Miralax] 17 gram/dose powder 17 g PO DAILY Qty: 119 0RF lorazepam 1 mg tablet 1 mg PO DAILY PRN (Reason: dizziness or vertigo) Qty: 30 0RF ferrous sulfate [FeroSul] 325 mg (65 mg iron) tablet See Rx Instructions .ROUTE .COMPLEX Qty: 90 0RF Dose Instruction: TAKE 1 TABLET BY MOUTH DAILY Rx Instructions: TAKE 1 TABLET BY MOUTH DAILY Follow-up/Referrals: Damir Guidry MD [Physician] - 3 Days Mukul Hector MD [Primary Care Provider] - 3 Days Time of Disposition: 00:16
[2024-10-31 22:40] LABS: Lipase 149 U/L (23-300)
[2024-10-31 23:03] LABS: SPREG INTERNAL CONTROL Positive; Serum Qual hCG Negative
[2024-10-31 23:05] LABS: Influenza A QL RT-PCR Negative (Negative); Influenza B QL RT-PCR Negative (Negative); RSV RNA, RT-PCR Negative (Negative); SARS-CoV-2 RNA PCR Negative (Negative)
[2024-10-31] MEDS: SODIUM CHLORIDE 0.9% IV 1,000 ML 999 ML IV CONT (23:09)
[2024-11-01 00:03] LABS: Alanine Aminotransferase 20 U/L (6-35); Albumin Level 4.8 g/dL (3.5-5.1); Alkaline Phosphatase 80 U/L (38-126); Anion Gap 15 mmol/L (4-12); Aspartate Amino Transferase 31 U/L (14-36); Bilirubin,Total 0.7 mg/dL (0.2-1.3); Blood Urea Nitrogen 13 mg/dL (7-17); Calcium 9.6 mg/dL (8.4-10.2); Carbon Dioxide 21 mmol/L (22-30); Chloride 104 mmol/L (98-107); Estimated CRCL calculation 100 ml/min; Estimated Glomerular Filt Rate > 60; Glucose 95 mg/dL (65-110); Potassium 4.1 mmol/L (3.4-5.0); Sodium 140 mmol/L (137-145)
--- NOTE | 2024-11-01 00:14 | PC.NURSE ---
Report received from BENITO Sanchez. Assumed care of patient at this time.
[2024-11-01 00:29] VITALS: BP 126/79; PULSE 87; RESP 18; O2SAT 100
== END 2024-11-01 00:30 | disposition home or self-care (01) ==
PROVIDERS: Emergency Provider Emergency Medicine; PCP Family Medicine
DX: R42 Dizziness and giddiness (principal); F41.9 Anxiety disorder, unspecified; Z20.822 Contact with and (suspected) exposure to COVID-19; E07.9 Disorder of thyroid, unspecified; E55.9 Vitamin D deficiency, unspecified; Z79.899 Other long term (current) drug therapy; R94.31 Abnormal electrocardiogram [ECG] [EKG]
CPT/HCPCS: 36415; 71045; 80053; 83690; 83735; 84703; 85025; 87637; 93005; 96360; 99283; J7030